=== PATIENT | female | born 1965 | race Caucasian/White ===

== ENCOUNTER 2019-01-17 23:25 | Observation (INO) | payer OTHER, SELFPAY ==
--- NOTE | 2019-01-17 23:36 | DI.CT.S_ITS ---
PROCEDURE: CT HEAD/BRAIN WO CON INDICATIONS: mental status change, decreased responsiveness TECHNIQUE: Noncontrast 4.5 mm thick angled axial sections acquired from the foramen magnum to the vertex, with coronal and sagittal reformats. For radiation dose reduction, the following was used: automated exposure control, adjustment of mA and/or kV according to patient size. COMPARISON: None. FINDINGS: Image quality: Excellent. CSF spaces: Basal cisterns are patent. No extra-axial fluid collections. Ventricles are normal in size and shape. Brain: No midline shift. No intracranial masses or hemorrhage. Oneill-white matter interface is normal. There is a right basal ganglia lacunar infarct or prominent perivascular space present. Skull and face: Calvarium and visualized facial bones are intact, without suspicious lesions. Sinuses: Visualized sinuses and mastoids are clear. IMPRESSION: 1. No acute intracranial findings. These findings are concordant with the overnight interpretation. Dictated by: Shireen Cox M.D. on 01/18/2019 at 6:48 Approved by: Shireen Cox M.D. on 01/18/2019 at 6:50
[2019-01-17 23:41] VITALS: BP 119/78; PULSE 78; RESP 14; TEMP 36.4; O2SAT 99
[2019-01-17] MEDS: SODIUM CHLORIDE 0.9% 1,000 ML 150 ML IV (23:48)
[2019-01-18] VITALS (7 sets, daily range): BP systolic 111–152; BP diastolic 63–113; PULSE 72–99; RESP 17–18; TEMP 35.9–36.9; O2SAT 95–100; BMI 21.8
[2019-01-18 00:15] LABS: Lactate (Lactic Acid) 2.6 mmol/L (0.7-2.1)
--- NOTE | 2019-01-18 00:18 | ED.ALCOHOL ---
HPI - Alcohol General Chief Complaint: Toxicology Problem Stated Complaint: ETOH Time Seen by Provider: 01/17/19 23:25 Source: family and EMS Mode of arrival: EMS Limitations: altered mental status History of Present Illness HPI narrative: 53-year-old female smoker with alcohol history presents by EMS for evaluation after drinking a significant amount of alcohol today. She was pleasantly intoxicated earlier in continue to drink and family found her and she was difficult to arouse. There is no evidence of trauma and patient though obtained it is guarding her airway without difficulty. EMS placed an IV and checked blood sugar at 130. No other information from family MD complaint: alcohol intoxication Last drink: just prior to this admission Chronic alcohol use: Yes Recent trauma: No Associated symptoms: other Treatments prior to arrival: none Related Data Home Medications Medication Instructions Recorded Confirmed chlorthalidone 50 mg PO DAILY 01/18/19 01/18/19 naltrexone 50 mg PO DAILY 01/18/19 01/18/19 Allergies Allergy/AdvReac Type Severity Reaction Status Date / Time No Known Drug Allergies Allergy Verified 01/17/19 23:41 Review of Systems Review of Systems ROS Unobtainable: Unobtainable due to mental status/LOC Constitutional Constitutional: Denies chills, Denies fatigue, Denies fever(s), Denies frequent falls, Denies lethargy and Denies weakness Eyes Eyes: Denies change in vision, Denies eye discharge, Denies irritation and Denies loss of vision ENT Ears, Nose, Mouth, and Throat: Denies change in voice, Denies dizziness, Denies neck pain, Denies sore throat and Denies throat swelling Cardiovascular Cardiovascular: Denies chest pain, Denies irregular heart rhythm, Denies lightheadedness, Denies palpitations, Denies dyspnea, Denies dyspnea on exertion and Denies orthopnea Respiratory Respiratory: Denies cough, Denies dyspnea, Denies dyspnea on exertion and Denies wheezing Gastrointestinal Gastrointestinal: Denies abdominal pain, Denies change in bowel habits, Denies diarrhea, Denies nausea and Denies vomiting Genitourinary Genitourinary: Denies hematuria, Denies flank pain, Denies urinary incontinence and Denies urinary urgency Musculoskeletal Musculoskeletal: Denies back pain, Denies muscle weakness, Denies neck pain, Denies numbness and Denies tingling Integumentary/Breasts Skin/Breast: Denies pruritus, Denies erythema, Denies rash and Denies wounds Neurologic Neurologic: Denies behavioral changes, Denies confusion, Denies dizziness, Denies frequent falls, Denies loss of vision, Denies numbness, Denies tingling and Denies weakness Psychiatric Psychiatric: Denies anxiety, Denies behavioral changes, Denies confusion, Denies depression, Denies homicidal ideation and Denies suicidal ideation Endocrine Endocrine: Denies fatigue, Denies flushing and Denies palpitations Hematologic/Lymphatic Hematologic/Lymphatic: Denies easy bruising Allergic/Immunologic Allergic/Immunologic: Denies urticaria, Denies throat swelling and Denies wheezing Patient History tobacco type: cigarettes Exam Narrative Exam Narrative: GENERAL: [53] year old patient appears stated age. Disheveled, arousable to firm voice and noxious stimuli, guarding airway without difficulty HEAD: Atraumatic. Normocephalic. EYES: Pupils equal round and reactive. Extraocular motions intact. No scleral icterus. No injection or drainage. ENT: Nose without bleeding, purulent drainage. Throat without erythema, tonsillar hypertrophy or exudate. Airway patent. NECK: Trachea midline. Non tender CARDIOVASCULAR: Regular rate and rhythm without murmurs, gallops, or rubs. RESPIRATORY: Clear to auscultation. Breath sounds equal bilaterally. No wheezes, rales, or rhonchi. GASTROINTESTINAL: Abdomen soft, non-tender, nondistended. EXTREMITIES: No edema or joint tenderness. BACK: Nontender without deformity or crepitance. No flank tenderness. SKIN: No rash or erythema of visible areas Initial Vital Signs Initial Vital Signs: Vital Signs Temperature 97.5 F L 01/17/19 23:41 Pulse Rate 78 01/17/19 23:41 Respiratory Rate 14 01/17/19 23:41 Blood Pressure 119/78 01/17/19 23:41 Pulse Oximetry 99 01/17/19 23:41 Course Orders Ordered: ED Orders 01/17/19 23:35 Acetaminophen Stat Complete Blood Count AUTO DIFF Stat Comprehensive Metabolic Panel Stat Ethanol (ETOH) Stat Partial Thromboplastin Time Stat Prolactin Stat Prothrombin Time INR Stat Salicylate Stat Thyroid Stimulating Hormone Stat Troponin I Stat Urine Culture Stat Urine Drug Screen, Rapid Stat 01/17/19 23:36 CT head/brain wo con Stat 01/17/19 23:44 Ammonia (NH3) Stat Lactate (Lactic Acid) Stat 01/18/19 01:42 EKG-12 Lead Stat Sodium Chloride (Normal Saline 0.9%) 1,000 mls @ 150 mls/hr IV CONT KIMBERLY Last Admin: 01/17/19 23:48 Dose: 150 mls/hr Documented by: SREEKANTH Potassium Chloride 80 meq/ (Sodium Chloride) 1,040 mls @ 130 mls/hr IV NOW ONE Stop: 01/18/19 09:22 Discontinued Medications Sodium Chloride (Normal Saline 0.9%) 1,000 mls @ 1,000 mls/hr IV BOLUS ONE Stop: 01/18/19 01:20 Vital Signs Vital signs: Vital Signs - 8 hr 01/17/19 23:41 01/18/19 00:05 01/18/19 01:00 Temperature 97.5 F L Pulse Rate 78 85 93 H Respiratory Rate 14 18 17 Blood Pressure 119/78 Blood Pressure [Left Arm] 121/81 111/83 Pulse Oximetry 99 99 98 MDM - Alcohol Lab Data Result diagrams: 01/18/19 00:29 01/18/19 00:29 Labs: Lab Results 01/17/19 01/17/19 01/18/19 Range/Units 23:44 23:44 00:29 WBC 6.6 (4.5-11.0) X10^3/uL RBC 4.59 (4.0-5.2) X10^6/uL Hgb 15.4 (12.0-16.0) g/dL Hct 45.2 (36-46) % MCV 98.4 (80-100) fL MCH 33.5 (26-34) PG MCHC 34.1 (30-36) % RDW 12.9 (11.6-14.8) % Plt Count 207 (150-400) X10^3/uL Neut % (Auto) 54.3 (50-75) % Lymph % (Auto) 35.7 (25-40) % [place] % (Auto) 8.6 (3-14) % Eos % (Auto) 0.5 L (2-4) % Baso % (Auto) 0.9 (0-2) % Neut # (Auto) 3600 (3535-6221) /uL Lymph # (Auto) 2400 (1542-5931) /uL [place] # (Auto) 600 (0-900) /uL Eos # (Auto) 0 (0-450) /uL Baso # (Auto) 100 (0-100) /uL PT (10.1-12.7) SECONDS INR (0.9-1.3) APTT (26.4-36.2) SECONDS Sodium (137-145) mmol/L Potassium (3.4-5.1) mmol/L Chloride (98-107) mmol/L Carbon Dioxide (22-32) mmol/L BUN (7-17) mg/dL Creatinine (0.52-1.04) mg/dL Estimated GFR (>60) mL/min BUN/Creatinine Ratio (6-22) Glucose (70-100) mg/dL Lactate 2.6 H (0.7-2.1) mmol/L Calcium (8.4-10.2) mg/dL Total Bilirubin (0.2-1.3) mg/dL AST (14-36) IU/L ALT (<35) IU/L Alkaline Phosphatase (38-126) U/L Ammonia < 9.0 L (9-30) umol/L Troponin I (0.01-0.034) ng/mL Total Protein (6.3-8.2) g/dL Albumin (3.5-5.0) g/dL Globulin (1.7-4.1) g/dL Albumin/Globulin Ratio (1.0-2.8) Prolactin (3.0-18.6) ng/mL Salicylates (<20) mg/dL Acetaminophen (10-30) ug/mL Ethyl Alcohol ( - 10) mg/dL 01/18/19 01/18/19 Range/Units 00:29 00:29 WBC (4.5-11.0) X10^3/uL RBC (4.0-5.2) X10^6/uL Hgb (12.0-16.0) g/dL Hct (36-46) % MCV (80-100) fL MCH (26-34) PG MCHC (30-36) % RDW (11.6-14.8) % Plt Count (150-400) X10^3/uL Neut % (Auto) (50-75) % Lymph % (Auto) (25-40) % [place] % (Auto) (3-14) % Eos % (Auto) (2-4) % Baso % (Auto) (0-2) % Neut # (Auto) (7207-2343) /uL Lymph # (Auto) (7184-7846) /uL [place] # (Auto) (0-900) /uL Eos # (Auto) (0-450) /uL Baso # (Auto) (0-100) /uL PT 9.6 L (10.1-12.7) SECONDS INR 0.8 L (0.9-1.3) APTT 32 (26.4-36.2) SECONDS Sodium 145 (137-145) mmol/L Potassium 2.4 L* (3.4-5.1) mmol/L Chloride 103 (98-107) mmol/L Carbon Dioxide 26 (22-32) mmol/L BUN 18 H (7-17) mg/dL Creatinine 0.60 (0.52-1.04) mg/dL Estimated GFR > 60.0 (>60) mL/min BUN/Creatinine Ratio 30.0 H (6-22) Glucose 115 H (70-100) mg/dL Lactate (0.7-2.1) mmol/L Calcium 9.3 (8.4-10.2) mg/dL Total Bilirubin 0.7 (0.2-1.3) mg/dL AST 58 H (14-36) IU/L ALT 48 H (<35) IU/L Alkaline Phosphatase 75 (38-126) U/L Ammonia (9-30) umol/L Troponin I < 0.012 (0.01-0.034) ng/mL Total Protein 7.5 (6.3-8.2) g/dL Albumin 4.5 (3.5-5.0) g/dL Globulin 3.0 (1.7-4.1) g/dL Albumin/Globulin Ratio 1.5 (1.0-2.8) Prolactin 38.5 H (3.0-18.6) ng/mL Salicylates < 1.0 (<20) mg/dL Acetaminophen < 10 L (10-30) ug/mL Ethyl Alcohol 411 H* ( - 10) mg/dL Discharge Plan Departure Patient Disposition: Admitted As Inpatient Clinical Impression: Alcoholic intoxication, Acute hypokalemia Admit Date/Time: 01/18/19 01:57
[2019-01-18 00:21] LABS: Ammonia (NH3) < 9.0 umol/L (9-30)
--- NOTE | 2019-01-18 00:27 | PC.NURSE ---
patient [place] reports [place] [facility] in the last few weeks.
--- NOTE | 2019-01-18 00:30 | PC.NURSE ---
patient father reports patient has been to [facility] and [facility] in the last few weeks. provider notified and aknowledeged information. no orders recieved.
[2019-01-18 00:50] LABS: Add Manual Diff / Slide Review NO; Basophils Absolute Auto 100 /uL (0-100); Basophils Percent Auto 0.9 % (0-2); Eosinophils Absolute Auto 0 /uL (0-450); Eosinophils Percent Auto 0.5 % (2-4); Hematocrit 45.2 % (36-46); Hemoglobin 15.4 g/dL (12.0-16.0); Lymphocytes Absolute Auto 2400 /uL (1100-4500); Lymphocytes Percent Auto 35.7 % (25-40); Mean Corpuscular HGB Conc 34.1 % (30-36); Mean Corpuscular Hemoglobin 33.5 PG (26-34); Mean Corpuscular Volume 98.4 fL (80-100); Monocytes Absolute Auto 600 /uL (0-900); Monocytes Percent Auto 8.6 % (3-14); Neutrophils Absolute Auto 3600 /uL (1500-7000); Neutrophils Percent Auto 54.3 % (50-75); Platelet Count 207 X10^3/uL (150-400); Red Blood Cell Count 4.59 X10^6/uL (4.0-5.2); Red Cell Distribution Width 12.9 % (11.6-14.8); White Blood Cell Count 6.6 X10^3/uL (4.5-11.0)
[2019-01-18 00:57] LABS: INR 0.8 (0.9-1.3); Prothrombin Time 9.6 SECONDS (10.1-12.7)
--- NOTE | 2019-01-18 00:57 | PC.NURSE ---
Pt was at home with her family. She had previously been at [place] [employer] but according to family did not appear intoxicated. She then began moaning while sleeping per her kids and fell off the bed. Pt is only responsive to pain,she is supporting her own airway.
[2019-01-18 01:00] LABS: PTT Partial Thromboplastin Tim 32 SECONDS (26.4-36.2)
[2019-01-18 01:02] LABS: Acetaminophen < 10 ug/mL (10-30); Alanine Aminotransferase 48 IU/L (<35); Albumin 4.5 g/dL (3.5-5.0); Albumin Globulin Ratio 1.5 (1.0-2.8); Alkaline Phosphatase 75 U/L (38-126); Aspartate Aminotransferase 58 IU/L (14-36); Bilirubin Total 0.7 mg/dL (0.2-1.3); Blood Urea Nitrogen 18 mg/dL (7-17); Calcium 9.3 mg/dL (8.4-10.2); Carbon Dioxide 26 mmol/L (22-32); Chloride 103 mmol/L (98-107); Estimated Glomerular Filt Rate > 60.0 mL/min (>60); Glucose 115 mg/dL (70-100); HEMOLYSIS < 15 (0-50); Salicylate < 1.0 mg/dL (<20); Sodium 145 mmol/L (137-145); Total Protein 7.5 g/dL (6.3-8.2)
[2019-01-18 01:13] LABS: Troponin I < 0.012 ng/mL (0.01-0.034)
[2019-01-18 01:15] LABS: Ethanol (ETOH) 411 mg/dL; Potassium 2.4 mmol/L (3.4-5.1)
--- NOTE | 2019-01-18 01:15 | PC.NURSE ---
Pt ambulated to with stand by assistance. Pt unable to give a urine sample. Pt refused catheter.
[2019-01-18 01:18] LABS: Prolactin 38.5 ng/mL (3.0-18.6)
[2019-01-18] MEDS: POTASSIUM CHLORIDE 80 MEQ in SODIUM CHLORIDE 0.9% 1,000 ML 130 ML IV (01:48)
[2019-01-18 01:51] LABS: Reflexed Lactate in 2 Hours Y
[2019-01-18 01:59] LABS: Thyroid Stimulating Hormone 2.61 uIU/mL (0.47-4.68)
[2019-01-18 02:33] LABS: Lactate 2HR (Lactic Acid Rflx) 1.9 mmol/L (0.7-2.1)
[2019-01-18 02:56] LABS: Magnesium 1.9 mg/dL (1.6-2.3)
--- NOTE | 2019-01-18 02:57 | PM.HP.1 ---
History of Present Illness History of Present Illness Date Patient Seen: 01/18/19 Time Patient Seen: 01:57 Chief complaint: ETOH Narrative: Ms. Denise Finnegan is a 53-year-old female with history significant for hypertension and alcoholism who presents via EMS with altered mental status. The patient reportedly had been to a birthday [employer] for her father earlier in the day at which time she had been consuming alcohol and subsequently upon returning home continue to drink. Obtain history is somewhat difficult related to the patient's level of intoxication. The patient endorses history consuming alcohol to glass of wine daily and is currently taking naltrexone. The patient denies other complaints of nausea vomiting headaches or dizziness. She sustained no trauma or injury. 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 The patient had been taking antimalarial medication which were continued 1 week following her return and discontinued. Patient states she has had no untoward symptoms. She denies fevers or chills, nasal congestion or sore throat. She has no chest pain or palpitations, shortness of breath cough or wheezing. She reports no abdominal pain, has no nausea vomiting and denies constipation or diarrhea. She denies urinary symptoms including urgency frequency or hematuria. She reports no mobility issues and uses no assistive devices. Patient is [facility] care [facility]. Upon arrival to the ER the patient has a temperature 97.5?, heart rate of 78, blood pressure 119/78, respirations 14 saturating 98% on room air. Patient was altered on initial exam but arousable and maintaining her own airway. A CT of the head is obtained which is no intracranial pathology. On laboratory analysis she has white count of 6.6, hemoglobin of 15.4, hematocrit of 45.2 and platelets of 207. She has a PT of 9.6 with an INR 0.8 and PTT of 32. She has a sodium of 145 and a potassium low at 2.4. She has a BUN of 18 and creatinine of 0.6. Her nonfasting glucose is 115. She has normal bilirubin at 0.7 elevated AST at 58, elevated ALT at 48 and alk-phos of 75. Chest ammonia less than 9.0. She has a procalcitonin elevated at 38.5. On tox screen she has positive alcohol at 411. Her troponin is less than 0.012 and a lactic acid of 2.8. The patient is admitted to the hospital for hypokalemia, dehydration and altered mental status secondary to alcohol intoxication. Patient History Medical History (Updated 01/18/19 @ 03:11 by APRIL Brunner) Alcohol abuse (Acute) Hypertension (Acute) Surgical History (Updated 01/18/19 @ 03:11 by APRIL Brunner) No history of previous surgery (Acute) Family & Social History Family History (Updated 01/18/19 @ 03:15 by APRIL Brunner) Father Lymphoma Mother Cancer Brother No significant medical problems Comment: The patient states she is single and lives in house with 2 children on [place]. Her parents are both still living with her father having lymphoma and her mother having had breast cancer. She has 1 sibling a brother with no significant medical problems. She has 2 children, 1 son and 1 daughter both in good health. Smoking: Patient indicates she has smoked in the past. History is unclear. Alcohol: Patient endorses to glass of wine nightly. Substance use: Recreational pharmaceuticals, cannabis or CBD products. Advanced directives: The patient has no formal advanced directive but states her desire to be FULL CODE. She names her daughter Jun Junior to be her surrogate decision maker. Meds Home Medications and Allergies Home Medications Medication Instructions Recorded Confirmed Type chlorthalidone 25 mg PO DAILY 01/18/19 01/18/19 History naltrexone 50 mg PO DAILY 01/18/19 01/18/19 History Allergies Allergy/AdvReac Type Severity Reaction Status Date / Time No Known Drug Allergies Allergy Verified 01/17/19 23:41 Review of Systems Review of Systems Narrative: All systems are reviewed and unremarkable except as noted in the HPI. Exam Vital Signs (past 8 hours): - 01/17/19 23:41 01/18/19 00:05 01/18/19 01:00 Temperature 97.5 F L Pulse Rate 78 85 93 H Respiratory Rate 14 18 17 Blood Pressure 119/78 Blood Pressure [Left Arm] 121/81 111/83 Pulse Oximetry 99 99 98 01/18/19 02:07 Temperature Pulse Rate 79 Respiratory Rate 17 Blood Pressure Blood Pressure [Left Arm] 123/73 Pulse Oximetry 95 Oxygen Delivery Method Nasal Cannula Oxygen Flow Rate 2 Narrative Exam Narrative: GENERAL APPEARANCE: well developed, well nourished, with altered mental status and some slurring of speech. HEENT: Normocephalic, atraumatic, PERRLA 3.5 mm OU, sclera is anicteric, EOMs intact, no rhinorrhea, mucous membranes are moist and pink without lesions or exudate. NECK/THYROID: neck supple, no JVD, no carotid bruit, no thyromegaly, trachea midline. LYMPH NODES: no cervical or supraclavicular lymphadenopathy. SKIN: [place], warm and dry, no visible suspicious lesions, rashes, ulcerations or petechiae. HEART: regular rate and rhythm, S1-S2, no murmur, no rubs or gallops, brisk capillary refill, no edema LUNGS: clear to auscultation bilaterally, no coarseness crackles or wheezing, no cough present CHEST: Symmetrical movement, no accessory muscle use, no pain to AP and lateral compression. ABDOMEN: Soft, no distention, no epigastric or abdominal tenderness, no guarding or peritoneal signs, no organomegaly, hypoactive bowel tones. BACK: Normal curvature, nontender to palpation, no CVA tenderness on percussion EXTREMITIES: moves all extremities, strength is 5/5 and symmetrical, no deformities or joint effusions. NEUROLOGIC: Response to verbal stimulus to alert and oriented x3, no focal neurologic deficits, sensation intact to light touch, hearing grossly normal to speech. PSYCH: Impaired mental processing and recall, stating not sure why she is at the hospital, cooperative Objective Labs Result Diagrams: 01/18/19 00:29 01/18/19 00:29 Labs: Laboratory Results - last 24 hr 01/17/19 01/17/19 01/18/19 23:44 23:44 00:29 WBC 6.6 RBC 4.59 Hgb 15.4 Hct 45.2 MCV 98.4 MCH 33.5 MCHC 34.1 RDW 12.9 Plt Count 207 Neut % (Auto) 54.3 Lymph % (Auto) 35.7 [place] % (Auto) 8.6 Eos % (Auto) 0.5 L Baso % (Auto) 0.9 Neut # (Auto) 3600 Lymph # (Auto) 2400 [place] # (Auto) 600 Eos # (Auto) 0 Baso # (Auto) 100 PT INR APTT Sodium Potassium Chloride Carbon Dioxide BUN Creatinine Estimated GFR BUN/Creatinine Ratio Glucose Lactate 2.6 H Calcium Total Bilirubin AST ALT Alkaline Phosphatase Ammonia < 9.0 L Troponin I Total Protein Albumin Globulin Albumin/Globulin Ratio TSH Prolactin Salicylates Acetaminophen Ethyl Alcohol 01/18/19 01/18/19 01/18/19 00:29 00:29 00:29 WBC RBC Hgb Hct MCV MCH MCHC RDW Plt Count Neut % (Auto) Lymph % (Auto) [place] % (Auto) Eos % (Auto) Baso % (Auto) Neut # (Auto) Lymph # (Auto) [place] # (Auto) Eos # (Auto) Baso # (Auto) PT 9.6 L INR 0.8 L APTT 32 Sodium 145 Potassium 2.4 L* Chloride 103 Carbon Dioxide 26 BUN 18 H Creatinine 0.60 Estimated GFR > 60.0 BUN/Creatinine Ratio 30.0 H Glucose 115 H Lactate Calcium 9.3 Total Bilirubin 0.7 AST 58 H ALT 48 H Alkaline Phosphatase 75 Ammonia Troponin I < 0.012 Total Protein 7.5 Albumin 4.5 Globulin 3.0 Albumin/Globulin Ratio 1.5 TSH 2.61 Prolactin 38.5 H Salicylates < 1.0 Acetaminophen < 10 L Ethyl Alcohol 411 H* 01/18/19 01:55 WBC RBC Hgb Hct MCV MCH MCHC RDW Plt Count Neut % (Auto) Lymph % (Auto) [place] % (Auto) Eos % (Auto) Baso % (Auto) Neut # (Auto) Lymph # (Auto) [place] # (Auto) Eos # (Auto) Baso # (Auto) PT INR APTT Sodium Potassium Chloride Carbon Dioxide BUN Creatinine Estimated GFR BUN/Creatinine Ratio Glucose Lactate 1.9 Calcium Total Bilirubin AST ALT Alkaline Phosphatase Ammonia Troponin I Total Protein Albumin Globulin Albumin/Globulin Ratio TSH Prolactin Salicylates Acetaminophen Ethyl Alcohol Assessment & Plan Assessment & Plan narrative: This is a 53-year-old female patient who was admitted to the hospital with acute hypokalemia secondary to diuretic use and insufficient potassium repletion. The patient has associated dehydration that is multifactorial related to diuretic use as well as alcohol consumption. 1. A acute severe hypokalemia, present on admission, active -the patient is currently taking chlorthalidone 25 mg daily for hypertension. The patient states she takes potassium pills daily but does not recall the strength. -serum potassium is 2.4 on admission. -the patient is hyporeflexic with sinus rhythm without ectopy and mild T-wave flattening on 12 lead EKG. -potassium repletion is started with 80 mEq KCL IV. -will monitor electrolyte levels. 2. Toxic metabolic encephalopathy related to alcohol intoxication, present on admission, active -history of alcohol use, unknown a have abuse or dependence. The patient denies prior withdrawal symptoms but does take naltrexone 50 mg daily. -blood alcohol on admission is 411. Patient response to verbal stimulus albeit slowly but is able to maintain her airway adequately. -will maintain elevation head of the bed, aspiration precautions. 3. Acute dehydration, present on admission, active -the patient presents with acute dehydration with an elevated serum lactate of 2.8 and a BUN creatinine ratio of 30. The patient has not voided since arrival. -bolus of IV saline initiated in the emergency department. -the patient is receiving potassium at 133 cc/hour will continue normal saline at 100 cc per hour in the tell the patient is able void. -no history of cardiac disease per patient report of than hypertension, will monitor fluid status and electrolytes. 4. Essential hypertension, stable. -blood pressure on admission is 119/78, blood pressure on admission to the floor is 146/96. -the patient has been taking chlorthalidone 25 mg daily for hypertension with potassium of unknown strength. -potassium is currently being repleted through the IV and chlorthalidone is held. -will monitor blood pressure and treat as necessary. VTE prophylaxis: SCDs, Lovenox 40 mg daily The patient is admitted to the hospital to the severity of her hypokalemia, risk for adverse events or complications. The patient is admitted as observation with expected length of stay to be less than 2 midnights. Scores GCS [place] coma scale eye opening: To sound [place] coma scale verbal response: Orientated Lexie coma scale motor response: Obey commands [place]ie coma scale total score: 14
[2019-01-18] MEDS: FAMOTIDINE 20 MG/50 ML PIGGYBACK 200 MG IV (03:42)
--- NOTE | 2019-01-18 03:49 | PC.ADMIT ---
Safe hand off from [facility]. Patient arrived on unit via stretcher at 0243, and was able to ambulate to bed. Patient is alert and oriented, but forgetful about why she is here. Patient is pleasant and co-operative, and stated that she is tired and wants to go to sleep. VSS, lung sounds clear bilaterally, denies pain or nausea. Patient is on tele: NS w/ 1st degree AV block. Patient does not have skin issues except some old scars that are documented in the skin assessment. Patient was educated about the use of call light, bed is low and locked and call light is within reach. Home medications were put into night pharmacy. Admission Note: The patient,Sridevi Finnegan,53 y/o, was given written information regarding hospital policies, unit procedures and contact persons. Patient's smoking status: Never smoker. Vital Signs - 8 hr 01/17/19 23:41 01/18/19 00:05 01/18/19 01:00 Temperature 97.5 F L Pulse Rate 78 85 93 H Respiratory Rate 14 18 17 Blood Pressure 119/78 Blood Pressure [Left Arm] 121/81 111/83 Pulse Oximetry 99 99 98 01/18/19 02:07 01/18/19 02:58 01/18/19 03:01 Temperature 96.7 F L Pulse Rate 79 72 99 H Respiratory Rate 17 18 Blood Pressure 114/63 146/96 H Blood Pressure [Left Arm] 123/73 Pulse Oximetry 95 97
[2019-01-18] MEDS: SODIUM CHLORIDE 0.9% 1,000 ML 100 ML IV ×2 (04:10→04:13)
[2019-01-18 05:33] LABS: Bacteria Urine None Seen; RBC Urine None Seen (0-5/HPF)
[2019-01-18 05:35] LABS: Appearance Urine UA CLOUDY; Bilirubin Urine UA NEGATIVE (NEGATIVE); Color Urine UA YELLOW; Glucose Urine UA NEGATIVE (Negative); Ketones Urine UA TRACE (NEGATIVE); Leukocyte Esterase Urine UA TRACE (NEGATIVE); Nitrite Urine UA NEGATIVE (Negative); Occult Blood Urine UA NEGATIVE (Negative); Protein Urine UA NEGATIVE (Negative); Urobilinogen Urine UA 0.2 E.U./dL (0.2)
[2019-01-18 05:54] LABS: Amorphous Sediment Urine 2+; Squamous Epithelial Cell Urine None Seen (0-5/HPF); WBC Urine 0-1/HPF (0-5/HPF)
[2019-01-18 05:55] LABS: Culture Indicated Urine Specimen Cultured
--- NOTE | 2019-01-18 09:25 | PM.PN.1 ---
Subjective Subjective Date Patient Seen: 01/18/19 Time Patient Seen: 09:25 Exam Vital Signs (past 8 hours): - 01/18/19 02:07 01/18/19 02:58 01/18/19 03:01 Temperature 96.7 F L Pulse Rate 79 72 99 H Respiratory Rate 17 18 Blood Pressure 114/63 146/96 H Blood Pressure [Left Arm] 123/73 Pulse Oximetry 95 97 01/18/19 08:35 Temperature 97.9 F Pulse Rate 92 H Respiratory Rate 17 Blood Pressure 133/81 Blood Pressure [Left Arm] Pulse Oximetry 100 Oxygen Delivery Method Room Air Oxygen Flow Rate 0 Objective Labs Result Diagrams: 01/18/19 00:29 01/18/19 00:29 Labs: Laboratory Results - last 24 hr 01/17/19 01/17/19 01/18/19 23:44 23:44 00:29 WBC 6.6 RBC 4.59 Hgb 15.4 Hct 45.2 MCV 98.4 MCH 33.5 MCHC 34.1 RDW 12.9 Plt Count 207 Neut % (Auto) 54.3 Lymph % (Auto) 35.7 [place] % (Auto) 8.6 Eos % (Auto) 0.5 L Baso % (Auto) 0.9 Neut # (Auto) 3600 Lymph # (Auto) 2400 [place] # (Auto) 600 Eos # (Auto) 0 Baso # (Auto) 100 PT INR APTT Sodium Potassium Chloride Carbon Dioxide BUN Creatinine Estimated GFR BUN/Creatinine Ratio Glucose Lactate 2.6 H Calcium Magnesium Total Bilirubin AST ALT Alkaline Phosphatase Ammonia < 9.0 L Troponin I Total Protein Albumin Globulin Albumin/Globulin Ratio TSH Prolactin Urine Color Urine Appearance Urine pH Ur Specific [place] Urine Protein Urine Glucose (UA) Urine Ketones Urine Occult Blood Urine Nitrate Urine Bilirubin Urine Urobilinogen Ur Leukocyte Esterase Urine RBC Urine WBC Ur Squamous Epith Cells Amorphous Sediment Urine Bacteria Ur Culture Indicated? Salicylates Acetaminophen Ethyl Alcohol 01/18/19 01/18/19 01/18/19 00:29 00:29 00:29 WBC RBC Hgb Hct MCV MCH MCHC RDW Plt Count Neut % (Auto) Lymph % (Auto) [place] % (Auto) Eos % (Auto) Baso % (Auto) Neut # (Auto) Lymph # (Auto) [place] # (Auto) Eos # (Auto) Baso # (Auto) PT 9.6 L INR 0.8 L APTT 32 Sodium 145 Potassium 2.4 L* Chloride 103 Carbon Dioxide 26 BUN 18 H Creatinine 0.60 Estimated GFR > 60.0 BUN/Creatinine Ratio 30.0 H Glucose 115 H Lactate Calcium 9.3 Magnesium Total Bilirubin 0.7 AST 58 H ALT 48 H Alkaline Phosphatase 75 Ammonia Troponin I < 0.012 Total Protein 7.5 Albumin 4.5 Globulin 3.0 Albumin/Globulin Ratio 1.5 TSH 2.61 Prolactin 38.5 H Urine Color Urine Appearance Urine pH Ur Specific [place] Urine Protein Urine Glucose (UA) Urine Ketones Urine Occult Blood Urine Nitrate Urine Bilirubin Urine Urobilinogen Ur Leukocyte Esterase Urine RBC Urine WBC Ur Squamous Epith Cells Amorphous Sediment Urine Bacteria Ur Culture Indicated? Salicylates < 1.0 Acetaminophen < 10 L Ethyl Alcohol 411 H* 01/18/19 01/18/19 01/18/19 00:29 01:55 05:22 WBC RBC Hgb Hct MCV MCH MCHC RDW Plt Count Neut % (Auto) Lymph % (Auto) [place] % (Auto) Eos % (Auto) Baso % (Auto) Neut # (Auto) Lymph # (Auto) [place] # (Auto) Eos # (Auto) Baso # (Auto) PT INR APTT Sodium Potassium Chloride Carbon Dioxide BUN Creatinine Estimated GFR BUN/Creatinine Ratio Glucose Lactate 1.9 Calcium Magnesium 1.9 Total Bilirubin AST ALT Alkaline Phosphatase Ammonia Troponin I Total Protein Albumin Globulin Albumin/Globulin Ratio TSH Prolactin Urine Color Yellow Urine Appearance Cloudy Urine pH 7.0 Ur Specific [place] 1.010 Urine Protein Negative Urine Glucose (UA) Negative Urine Ketones Trace H Urine Occult Blood Negative Urine Nitrate Negative Urine Bilirubin Negative Urine Urobilinogen 0.2 Ur Leukocyte Esterase Trace H Urine RBC None seen Urine WBC 0-1/hpf Ur Squamous Epith Cells None seen Amorphous Sediment 2+ Urine Bacteria None seen Ur Culture Indicated? Specimen cultured Salicylates Acetaminophen Ethyl Alcohol
[2019-01-18] MEDS: ENOXAPARIN 40 MG/0.4 ML SYRINGE SUBCUT (09:56)
--- NOTE | 2019-01-18 10:26 | PC.NURSE ---
Addendum entered by Yvette Unger R.N. 01/18/19 13:00: Patient discharged via wheelchair with family present. Addendum entered by Yvette Unger R.N. 01/18/19 12:03: Patient given discharge education including follow up and alcohol cessation. Patient receptive to teaching. IV discontinued, tele removed, patient tolerated well. Original Note: Patient is resting in bed. Patient is A/Ox3, unsure how she came to be in the hospital but last remembers getting ready for bed. Patient ambulates SBA to restroom. Denies dizziness, SOB, n/v, chest pain. Patient is free of tremors, face is slightly flushed, patient drinking water and juice, refused breakfast. Patient is on tele, lung sounds clear, pulses equal bilaterally. Patient refused SCD's though educated on prevention of DVT and stroke. Lab called for 1000 draw. Call light in reach, bed alarm on.
[2019-01-18 11:12] LABS: Alanine Aminotransferase 56 IU/L (<35); Albumin 4.6 g/dL (3.5-5.0); Albumin Globulin Ratio 1.5 (1.0-2.8); Alkaline Phosphatase 92 U/L (38-126); Aspartate Aminotransferase 74 IU/L (14-36); Bilirubin Total 1.3 mg/dL (0.2-1.3); Blood Urea Nitrogen 11 mg/dL (7-17); Calcium 9.1 mg/dL (8.4-10.2); Carbon Dioxide 26 mmol/L (22-32); Chloride 105 mmol/L (98-107); Estimated Glomerular Filt Rate > 60.0 mL/min (>60); Glucose 100 mg/dL (70-100); HEMOLYSIS < 15 (0-50); Potassium 4.1 mmol/L (3.4-5.1); Sodium 141 mmol/L (137-145); Total Protein 7.6 g/dL (6.3-8.2)
--- NOTE | 2019-01-18 11:27 | P.DS_ITS ---
History of Present Illness History of Present Illness Date Patient Seen: 01/18/19 Chief complaint: ETOH Narrative: Ms. Denise Finnegan is a 53-year-old female with history significant for hypertension and alcoholism who presents via EMS with altered mental status. The patient reportedly had been to a birthday republic[employer] for her father earlier in the day at which time she had been consuming alcohol and subsequently upon returning home continue to drink. Obtain history is somewhat difficult related to the patient's level of intoxication. The patient endorses history consuming alcohol to glass of wine daily and is currently taking naltrexone. The patient denies other complaints of nausea vomiting headaches or dizziness. She sustained no trauma or injury. 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 The patient had been taking antimalarial medication which were continued 1 week following her return and discontinued. Patient states she has had no untoward symptoms. She denies fevers or chills, nasal congestion or sore throat. She has no chest pain or palpitations, shortness of breath cough or wheezing. She reports no abdominal pain, has no nausea vomiting and denies constipation or diarrhea. She denies urinary symptoms including urgency frequency or hematuria. She reports no mobility issues and uses no assistive devices. Patient is [facility] care [facility]. Upon arrival to the ER the patient has a temperature 97.5?, heart rate of 78, blood pressure 119/78, respirations 14 saturating 98% on room air. Patient was altered on initial exam but arousable and maintaining her own airway. A CT of the head is obtained which is no intracranial pathology. On laboratory analysis she has white count of 6.6, hemoglobin of 15.4, hematocrit of 45.2 and platelets of 207. She has a PT of 9.6 with an INR 0.8 and PTT of 32. She has a sodium of 145 and a potassium low at 2.4. She has a BUN of 18 and creatinine of 0.6. Her nonfasting glucose is 115. She has normal bilirubin at 0.7 elevated AST at 58, elevated ALT at 48 and alk-phos of 75. Chest ammonia less than 9.0. She has a procalcitonin elevated at 38.5. On tox screen she has positive alcohol at 411. Her troponin is less than 0.012 and a lactic acid of 2.8. The patient is admitted to the hospital for hypokalemia, dehydration and altered mental status secondary to alcohol intoxication. Discharge Providers Provider Date of admission: 01/18/19 01:57 Discharge Date: 01/18/19 Consults: 01/18/19 02:28 Consult to Discharge Planning Routine Comment: Discharge provider: Shruti Sandoval MD Summary Hospital Course Discharge Diagnosis: 1. A acute severe hypokalemia 2. Toxic metabolic encephalopathy related to alcohol intoxication 3. Acute dehydration 4. Essential hypertension Hospital Course: 1. Acute severe hypokalemia, present on admission, active -the patient is currently taking chlorthalidone 25 mg daily for hypertension. The patient states she takes potassium pills daily but does not recall the strength. -serum potassium is 2.4 on admission. After IV supplementation this rises to 4.1. -the patient was initially hyporeflexic with sinus rhythm without ectopy and mild T-wave flattening on 12 lead EKG. -she will be discharged on 10 mEq of potassium chloride b.i.d. with close follow-up to her primary care on [place]. 2. Toxic metabolic encephalopathy related to alcohol intoxication, present on admission, active -history of alcohol use, unknown a have abuse or dependence. The patient denies prior withdrawal symptoms but does take naltrexone 50 mg daily. -blood alcohol on admission is 411. Patient response to verbal stimulus albeit slowly but is able to maintain her airway adequately. -when seen this morning she is alert, oriented x3, not showing signs of DTs, appearing to be back to her baseline. She endorses that appearance. 3. Acute dehydration, present on admission, active -the patient presents with acute dehydration with an elevated serum lactate of 2.8 and a BUN creatinine ratio of 30. The patient has not voided since arrival. -bolus of IV saline initiated in the emergency department. 4. Essential hypertension, stable. -blood pressure on admission is 119/78, blood pressure on admission to the floor is 146/96. -the patient has been taking chlorthalidone 25 mg daily for hypertension with potassium of unknown strength . Status at Discharge Cognitive/behavioral status at discharge: at baseline, oriented Functional status at discharge: independent ambulation Overall status at discharge: patient is back to baseline Time Spent with Patient Time spent: Less than 30 minutes Exam Vital Signs (past 8 hours): - 01/18/19 08:35 Temperature 97.9 F Pulse Rate 92 H Respiratory Rate 17 Blood Pressure 133/81 Pulse Oximetry 100 Oxygen Delivery Method Room Air Oxygen Flow Rate 0 Narrative Exam Narrative: She is alert and oriented x3. No apparent distress Heart is regular rate and rhythm without murmur. Lungs are clear to auscultation bilaterally. Abdomen is soft, nontender, bowel sounds active. There is no organomegaly. Extremities have no ankle edema Objective Labs Result Diagrams: 01/18/19 00:29 01/18/19 10:43 Labs: Laboratory Results - last 24 hr 01/17/19 01/17/19 01/18/19 23:44 23:44 00:29 WBC 6.6 RBC 4.59 Hgb 15.4 Hct 45.2 MCV 98.4 MCH 33.5 MCHC 34.1 RDW 12.9 Plt Count 207 Neut % (Auto) 54.3 Lymph % (Auto) 35.7 [place] % (Auto) 8.6 Eos % (Auto) 0.5 L Baso % (Auto) 0.9 Neut # (Auto) 3600 Lymph # (Auto) 2400 [place] # (Auto) 600 Eos # (Auto) 0 Baso # (Auto) 100 PT INR APTT Sodium Potassium Chloride Carbon Dioxide BUN Creatinine Estimated GFR BUN/Creatinine Ratio Glucose Lactate 2.6 H Calcium Magnesium Total Bilirubin AST ALT Alkaline Phosphatase Ammonia < 9.0 L Troponin I Total Protein Albumin Globulin Albumin/Globulin Ratio TSH Prolactin Urine Color Urine Appearance Urine pH Ur Specific [place] Urine Protein Urine Glucose (UA) Urine Ketones Urine Occult Blood Urine Nitrate Urine Bilirubin Urine Urobilinogen Ur Leukocyte Esterase Urine RBC Urine WBC Ur Squamous Epith Cells Amorphous Sediment Urine Bacteria Ur Culture Indicated? Salicylates Acetaminophen Ethyl Alcohol 01/18/19 01/18/19 01/18/19 00:29 00:29 00:29 WBC RBC Hgb Hct MCV MCH MCHC RDW Plt Count Neut % (Auto) Lymph % (Auto) [place] % (Auto) Eos % (Auto) Baso % (Auto) Neut # (Auto) Lymph # (Auto) [place] # (Auto) Eos # (Auto) Baso # (Auto) PT 9.6 L INR 0.8 L APTT 32 Sodium 145 Potassium 2.4 L* Chloride 103 Carbon Dioxide 26 BUN 18 H Creatinine 0.60 Estimated GFR > 60.0 BUN/Creatinine Ratio 30.0 H Glucose 115 H Lactate Calcium 9.3 Magnesium Total Bilirubin 0.7 AST 58 H ALT 48 H Alkaline Phosphatase 75 Ammonia Troponin I < 0.012 Total Protein 7.5 Albumin 4.5 Globulin 3.0 Albumin/Globulin Ratio 1.5 TSH 2.61 Prolactin 38.5 H Urine Color Urine Appearance Urine pH Ur Specific [place] Urine Protein Urine Glucose (UA) Urine Ketones Urine Occult Blood Urine Nitrate Urine Bilirubin Urine Urobilinogen Ur Leukocyte Esterase Urine RBC Urine WBC Ur Squamous Epith Cells Amorphous Sediment Urine Bacteria Ur Culture Indicated? Salicylates < 1.0 Acetaminophen < 10 L Ethyl Alcohol 411 H* 01/18/19 01/18/19 01/18/19 00:29 01:55 05:22 WBC RBC Hgb Hct MCV MCH MCHC RDW Plt Count Neut % (Auto) Lymph % (Auto) [place] % (Auto) Eos % (Auto) Baso % (Auto) Neut # (Auto) Lymph # (Auto) [place] # (Auto) Eos # (Auto) Baso # (Auto) PT INR APTT Sodium Potassium Chloride Carbon Dioxide BUN Creatinine Estimated GFR BUN/Creatinine Ratio Glucose Lactate 1.9 Calcium Magnesium 1.9 Total Bilirubin AST ALT Alkaline Phosphatase Ammonia Troponin I Total Protein Albumin Globulin Albumin/Globulin Ratio TSH Prolactin Urine Color Yellow Urine Appearance Cloudy Urine pH 7.0 Ur Specific [place] 1.010 Urine Protein Negative Urine Glucose (UA) Negative Urine Ketones Trace H Urine Occult Blood Negative Urine Nitrate Negative Urine Bilirubin Negative Urine Urobilinogen 0.2 Ur Leukocyte Esterase Trace H Urine RBC None seen Urine WBC 0-1/hpf Ur Squamous Epith Cells None seen Amorphous Sediment 2+ Urine Bacteria None seen Ur Culture Indicated? Specimen cultured Salicylates Acetaminophen Ethyl Alcohol 01/18/19 10:43 WBC RBC Hgb Hct MCV MCH MCHC RDW Plt Count Neut % (Auto) Lymph % (Auto) [place] % (Auto) Eos % (Auto) Baso % (Auto) Neut # (Auto) Lymph # (Auto) [place] # (Auto) Eos # (Auto) Baso # (Auto) PT INR APTT Sodium 141 Potassium 4.1 D Chloride 105 Carbon Dioxide 26 BUN 11 Creatinine 0.50 L Estimated GFR > 60.0 BUN/Creatinine Ratio 22.0 Glucose 100 Lactate Calcium 9.1 Magnesium Total Bilirubin 1.3 AST 74 H ALT 56 H Alkaline Phosphatase 92 Ammonia Troponin I Total Protein 7.6 Albumin 4.6 Globulin 3.0 Albumin/Globulin Ratio 1.5 TSH Prolactin Urine Color Urine Appearance Urine pH Ur Specific [place] Urine Protein Urine Glucose (UA) Urine Ketones Urine Occult Blood Urine Nitrate Urine Bilirubin Urine Urobilinogen Ur Leukocyte Esterase Urine RBC Urine WBC Ur Squamous Epith Cells Amorphous Sediment Urine Bacteria Ur Culture Indicated? Salicylates Acetaminophen Ethyl Alcohol Discharge Plan Discharge Plan Patient Disposition: Home Discharge comment: Follow up with Dr. Packer in one week. Do not drink any alcohol. Discharge orders & Medications Prescriptions: New potassium chloride 10 mEq capsule, extended release 10 meq PO BID Qty: 60 RF: 0 Continued naltrexone 50 mg Tablet 50 mg PO DAILY RF: 0 chlorthalidone 50 mg Tablet 25 mg PO DAILY RF: 0 Diet/Activity/Treatments Diet: Diet as Tolerated Visit Report/Discharge Packet Instructions: DI for Alcohol Abuse
--- NOTE | 2019-01-18 14:21 | CM.DANOTE ---
DCP/Assessment: Reviewed chart. Patient is a 53yr old female admitted to [facility] for alcohol intoxication. No PCP listed. No primary payor listed. Met with patient this AM explained MANAGER [employer] role. Patient alert and oriented during visit. Alcohol level at time of admit was 411. Patient reports that she resides on [address] with her 2 children and friend/significant other. Patient reports that she was born and raised in [place]. Patient here for holiday weekend and her father's - constitution party. Patient reports that she has h/o alcoholism. Patient has been trying to quit off/on for years. Currently patient trying program [employer] [facility] to quit. She is prescribed naltrexone 50mg po daily. Prescriber is APRIL/Toy Rosado. Patient denies needing any alcohol resources at this time. Patient plans to d/c home today and return to [place] later this afternoon. Patient appreciative of visit. MANAGER INTRANET encouraged patient to consider reaching out to AA. Patient has tried AA in the past and she did not like. Patient works full-time and travels a lot for business. Patient's friend/significant other resides with her and also drinks. Encourage patient to think lifestyle through. No additional needs identified at this time. P: Home today. JUVENCIO Palacios Discharge Planning/Care Management Advanced directive, confirm from FAMILY Start: 01/18/19 02:57 Freq: Q24H Status: Discharge Protocol: Document 01/18/19 11:49 JACOBY (Rec: 01/18/19 11:51 [email or web address] [id number]) Advance Directive, confirm on record Time 11:49 Person contacted Patient Copy received No Advanced directive available on record No CM Discharge Assessment Start: 01/18/19 14:18 Freq: Status: Discharge Protocol: Document 01/18/19 14:18 KJS (Rec: 01/18/19 14:21 [id number]) Discharge Planning Assessment Assigned Trip Rider JUVENCIO Palacios Contact Information None listed Advance Directives? No History Provided By Patient,Medical Record Prior Living Arrangements House Household Members significant other,children Type of transporation used prior to Drives own vehicle admit Independent with ADL's Yes Is patient alert and oriented? Yes Caregiver for Another Yes: Has two children at home ages 12 & 9 Comment Patient sees counselor for alcoholism 1x per month. Barriers to Discharge No Discharge Plan Home Transportation Arrangement Family to provide transport. Additional Comment Patient denies resourecs for alcholism Whiteboard Updated in Patient Room with Yes name and ext. # of Trip Rider Review Status In Process Next Review Type Continued Stay Review
== END 2019-01-18 13:01 | disposition home or self-care (01) ==
LOC: ED 01-18 01:32 → AC 01-18 01:58
PROVIDERS: Admitting Provider Nurse Practitioner Adult Health; Emergency Provider Emergency Medicine; Visit Provider Nurse Practitioner Adult Health
DX: E87.6 Hypokalemia (principal); F10.129 Alcohol abuse with intoxication, unspecified; R41.82 Altered mental status, unspecified; Y90.8 Blood alcohol level of 240 mg/100 ml or more; E86.0 Dehydration; I10 Essential (primary) hypertension; T51.94XA Toxic effect of unspecified alcohol, undetermined, initial encounter; G92 Toxic encephalopathy
CPT/HCPCS: 36415; 70450; 80053; 80320; 80329; 81001; 82140; 83605; 83735; 84146; 84443; 84484; 85025; 85610; 85730; 87077; 87086; 87147; 93005; 96361; 96365; 96366; 96368; 96372; 99282; 99285; G0378; G0480; J1650; J3480